=== PATIENT | female | born 1980 | race African-American/Black ===

== ENCOUNTER 2024-01-07 06:06 | Day surgery (SDC) | payer OTHER ==
[2024-01-06 12:21] VITALS: BMI 48.7
[2024-01-07] MEDS ORDERED: Propofol 1,000 MG/100 ML VIAL IV ONE (06:22)
[2024-01-07] MEDS ORDERED: Lidocaine 1% (PF) 30 ML VIAL ONE (06:23)
[2024-01-07] MEDS ORDERED: PHENYLEPHRINE-NS 100 MCG/ML 10 ML SYRINGE ONE (06:27)
[2024-01-07] MEDS ORDERED: GLYCOPYRROLATE/PF 0.2 MG/ML VIAL ONE (06:27)
[2024-01-07] MEDS ORDERED: Labetalol HCl 100 MG/20 ML VIAL ONE (07:46)
[2024-01-07] MEDS ORDERED: Midazolam HCl 2 mg/2 ml Vial ONE (07:54)
[2024-01-07] MEDS ORDERED: PROPOFOL 0 ML ONE (08:07)
[2024-01-07] MEDS ORDERED: PROPOFOL 20 ML ONE (10:53)
== END 2024-01-07 09:30 | disposition home or self-care (01) ==
LOC: SDC 06:06
PROVIDERS: ATTEND Internal Medicine
PROC: 0DJD8ZZ Inspection of Lower Intestinal Tract, Via Natural or Artificial Opening Endoscopic (ICD-10-PCS; principal; 2024-01-07)
DX: Z12.11 Encounter for screening for malignant neoplasm of colon (principal); K64.8 Other hemorrhoids; I10 Essential (primary) hypertension; F32.A Depression, unspecified; Z87.59 Personal history of other complications of pregnancy, childbirth and the puerperium; Z90.89 Acquired absence of other organs; Z79.899 Other long term (current) drug therapy
CPT/HCPCS: J2250; J2704; J3490